=== PATIENT | male | born 1940 | race Caucasian/White ===

== ENCOUNTER → 2017-10-07 08:14 | Outpatient (CLI) | payer MEDICARE, OTHER | END | disposition home or self-care (01) | LOC: D.MRI 08:14 | DX: M54.5 Low back pain (principal) ==

== ENCOUNTER 2018-03-03 08:10 | Day surgery (SDC) | payer MEDICARE, OTHER ==
[2018-03-02 15:10] LABS: HEMATOCRIT 33.5 % (42.0-54.0); HEMOGLOBIN 11.3 g/dL (13.5-17.5); MCH 30.4 pg (26.0-34.0); MCHC 33.7 g/dL (31.0-37.0); MCV 90.1 fL (80.0-100.0); MEAN PLATELET VOLUME 9.4 fL (7.4-10.4); RBC 3.72 10x6/uL (4.20-6.10); RDW 13.1 % (11.5-14.5); WBC 6.4 10x3/uL (4.8-10.8)
[~2018-03-03] VITALS: Ht 170.2 cm; Wt 74.4 kg
[~2018-03-03 08:10] MED LIST: PROSCAR5 MG PO; UROXATRAL10 MG PO; VITAMIN D250000 UNIT PO
[2018-03-03 10:10] VITALS: BP 128/73; Ht 170.2 cm; Wt 74.4 kg
--- NOTE | 2018-03-03 11:55 | NUR ---
1140-RETURNRED FROM OR. DROWSY. RESP WITH EASE. AMIE PATENT. 1145-DR HERNANDEZ IN TO SEE PATIENT 1150-FULL LIQUIDS SERVED.
--- NOTE | 2018-03-03 12:11 | OP ---
PATIENT NAME: ABIMAEL ARCHIBALD MEDICAL RECORD: [id number] :40 LOCATION:[facility] ADMISSION DATE: SURGEON: FEDERICO HERNANDEZ MD DATE OF OPERATION: 03/03/2018 SURGEON: Federico Hernandez MD SEX WORKER OR ESCORT: MARYSOL by Thai Lyles CRNA. DIAGNOSIS: Obstructive BPH. Postvoid residual 102 mL. Digital rectal examination shows a 60 gram prostate. IPSS score was 21 and quality of life score was 6. FINDINGS: No penile urethral strictures. Obstructive bilateral lateral lobes. Unable to have a suture holding the right proximal lateral lobe. PROCEDURE: Cystoscopy, UroLift times 6 units attempted, but only 3 held. ESTIMATED BLOOD LOSS: Minimal. CLINICAL HISTORY: This is a 77-year-old male, who has obstructive BPH. He has been on finasteride and alfuzosin for over 1 year. He still has significant voiding symptoms. This includes nocturia times 6-8, which makes it difficult for him to sleep. He has hesitancy in getting started with a slow urinary flow and he feels that he is not fully emptying his bladder. His postvoid residual was measured at 102 mL. He was initially scheduled to have a TURP, but the surgery was delayed for other reasons. He comes now to have a UroLift procedure done. On rectal examination, his prostate is about 60 grams in size and benign. He is allergic to no medications. He was given [employer] customer relations advisor to the OR. DESCRIPTION OF PROCEDURE: The patient was given IV sedation. He was then placed into dorsal lithotomy position. The UroLift scope was used for cystoscopy. Findings are as outlined above. I attempted to put the proximal prosthetic urethral sutures first in the anterior lateral lobes of the prostate. I pulled the scope back distance of 2 cm from the bladder neck in order to have the device go in about 2 cm distal to the bladder neck. On the left side, this went without incidence. On the right side, we had difficulty with the instrumentation. The needle would passed through, but the clip on the opposite side would not catch. The lobe may be too thick for the depth of our instruments. We then placed the 2 distal anterior lateral lobe sutures at the level of the verumontanum. These were placed without incident and they are retracting the anterior urethral wall very nicely. We tried 2 more times in the right anterior proximal lateral lobe to try to get the device to have a suture that would hold, but always, we were unsuccessful. Further attempts were then abandoned. He does have some bleeding from our needle passages. I placed a 16-Colombian Olmos catheter into the bladder. This was put to bag drainage. I will see him next week for a voiding trial. TRANSINT:[id number] Voice Confirmation ID: [id number] DOCUMENT ID: [id number] OPERATIVE REPORT [id number] ABIMAEL ARCHIBALD, FEDERICO Mtz MD at 1211 CC: [id number] DICTATION DATE: 03/03/18 1141 END FINDER TWISTING DEPARTMENT: 03/03/18 1202 [facility] [address] [place] [address]
--- NOTE | 2018-03-03 14:01 | NUR ---
PATIENT RECIEVED WITH NO COMPLICATIONS. PAIN IS DENIED, EDUCATION PROVIDED FOR HOLLOWAY CATH. IV DC WITH CAATH TIP INTACT. DC INSTRUCTIONS PROVIDED WITH UNDERSTANDING VERBALIZED.
== END 2018-03-03 13:20 | disposition home or self-care (01) ==
LOC: D.OPS 08:10 → D.PAN 12:00 → D.OPS 12:00
PROVIDERS: Anesthesiology
DX: N40.1 Benign prostatic hyperplasia with lower urinary tract symptoms (principal); N13.8 Other obstructive and reflux uropathy; R39.11 Hesitancy of micturition; R39.14 Feeling of incomplete bladder emptying; R35.1 Nocturia; R39.12 Poor urinary stream; Z01.812 Encounter for preprocedural laboratory examination

== ENCOUNTER → 2018-03-09 18:51 | Outpatient (CLI) | payer MEDICARE, OTHER ==
[2018-03-03 10:10] VITALS: BMI 25.7
[~2018-03-09 18:51] MED LIST changes: +KRILL OIL 1,001 EAC1 PO; +MULTI-DAY VITAM1 TAB PO; +OS-CAL500 MG PO
== END | disposition home or self-care (01) ==
LOC: D.LABREF 18:51
DX: R31.9 Hematuria, unspecified (principal); D72.829 Elevated white blood cell count, unspecified

== ENCOUNTER 2018-03-29 05:35 | Day surgery (SDC) | payer MEDICARE, OTHER ==
[~2018-03-29] VITALS: Ht 177.8 cm; Wt 71.7 kg
[2018-03-29 10:10] LABS: HEMATOCRIT 35.1 % (42.0-54.0); HEMOGLOBIN 11.9 g/dL (13.5-17.5); MCH 30.3 pg (26.0-34.0); MCHC 33.9 g/dL (31.0-37.0); MCV 89.3 fL (80.0-100.0); MEAN PLATELET VOLUME 9.7 fL (7.4-10.4); RBC 3.93 10x6/uL (4.20-6.10); RDW 13.3 % (11.5-14.5); WBC 5.5 10x3/uL (4.8-10.8)
[2018-03-29 10:13] LABS: ANION GAP 11.2 mmol/L (8-16); CALCIUM 8.9 mg/dL (8.5-10.1); CARBON DIOXIDE 27.7 mmol/L (21.0-32.0); CREATININE - SERUM 1.2 mg/dL (0.6-1.3); POTASSIUM - SERUM 3.9 mmol/L (3.5-5.1)
[2018-03-29 10:53] VITALS: BP 106/65; Ht 177.8 cm; Wt 71.7 kg
--- NOTE | 2018-03-29 15:54 | OP ---
PATIENT NAME: ABIMAEL ARCHIBALD MEDICAL RECORD: [id number] :40 LOCATION:D.[facility] ADMISSION DATE: SURGEON: ALDO HERNANDEZ MD DATE OF OPERATION: 03/29/2018 SURGEON: Aldo Hernandez MD ANESTHESIA: TIVA by Mingo Davis CRNA. PROCEDURE: Cystoscopy, UroLift times 4 units attempted, 2 held, left side unit placed near the bladder neck, right side unit placed in mid urethra. 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 SPECIMENS: None. DIAGNOSIS: Obstructive benign prostatic hypertrophy. ESTIMATED BLOOD LOSS: Minimal. CLINICAL HISTORY: This is a 77-year-old male, who has obstructive BPH. He had a UroLift procedure performed on 03/03/2018 for obstructive BPH. He had 6 units attempted, but only 3 held. Three units were used trying to get the right lateral lobe near the bladder neck in position, but these sutures kept pulling out or hitting bone. At the present time, he has 3 units. Two are on the left side, one at the bladder neck and one near the verumontanum, and there is one on the right side near the verumontanum. He continues to have the same obstructive voiding symptoms as prior to surgery. His IPSS score when I saw him in followup was 22. Preoperatively was 21. His quality of life score was unchanged at 6. He has stopped taking his finasteride and alfuzosin that he had been on preoperatively. He did wish to have a repeat trial of the UroLift. If this was unsuccessful then the next step would be a TURP to try to relieve his voiding obstruction. He is not allergic to any medications. He was given Ancef clinical rehab liaison to the OR. DESCRIPTION OF PROCEDURE: The patient was given IV sedation. He was then placed into dorsal lithotomy position. The UroLift scope was placed. The anterior urethral channel is still obstructed. The lateral lobes are still meeting in the midline. I placed 1 UroLift device in the midpoint on the left lateral lobe near the anterior portion of the urethral channel. This held and the left side is now well retracted. On the right side, after using numerous attempts to get the suture to hold in the right bladder neck region, I finally got 1 to hold and this left us with 2 units on the right side and 3 units on the left side. He has much better urethral channel now. I decided to leave it at that and we will see how his voiding symptoms are. There is some bleeding from my multiple needle passages. Therefore, I will place a Olmos catheter and the catheter will be removed in a few days' time for a voiding trial. TRANSINT:[id number] Voice Confirmation ID: [id number] DOCUMENT ID: [id number] OPERATIVE REPORT [id number] ABIMAEL ARCHIBALD, ALDO Mtz MD at 1554 CC: [id number] DICTATION DATE: 03/29/18 1331 RIG SITE ENGINEER: 03/29/18 1508 [facility] [address] [place] [id number]
== END 2018-03-29 14:55 | disposition home or self-care (01) ==
LOC: D.OPS 05:35 → D.PAN 13:00 → D.OPS 13:00
PROVIDERS: Anesthesiology
DX: N40.1 Benign prostatic hyperplasia with lower urinary tract symptoms (principal); N13.8 Other obstructive and reflux uropathy; Z01.812 Encounter for preprocedural laboratory examination

== ENCOUNTER 2018-05-11 21:19 | Day surgery (SDC) | payer MEDICARE, OTHER ==
[2018-05-10 08:17] LABS: HEMATOCRIT 36.6 % (42.0-54.0); HEMOGLOBIN 12.3 g/dL (13.5-17.5); MCHC 33.6 g/dL (31.0-37.0); MCV 89.3 fL (80.0-100.0); MEAN PLATELET VOLUME 10.2 fL (7.4-10.4); RBC 4.1 10x6/uL (4.20-6.10); RDW 14.2 % (11.5-14.5); WBC 5.1 10x3/uL (4.8-10.8)
[~2018-05-11] VITALS: Ht 177.8 cm; Wt 71.7 kg
[2018-05-11 12:24] VITALS: BP 128/71; Ht 177.8 cm; Wt 71.7 kg
--- NOTE | 2018-05-11 19:52 | NUR ---
193 BLADDER SCAN DONE TOLERATED WELL 103ML OF URINE. IVF BOLUS 500ML GIVEN AND PT DRINKING FLUIDS WELL. ATTEMPTED UP TO BATHROOM BUT UNABLE TO URINATE. BLADDER SOFT TO PALPATE,ABDOMINAL BINDER ON AND PT STATED IT HELPED HIS PAIN.
--- NOTE | 2018-05-11 20:34 | NUR ---
PT IN BATHROOM ATTEMPTED TO URINATE BUT UNABLE. BLADDER SCAN AGAIN AND 175ML URINE NOTED. DR ROBERSON CYCLE MANAGER AND CALLED TO NOTIFY BLADDER SOFT AND PT NOT IN ANY DISCOMFORT. IVF GIVEN AND PO FLUIDS. PAIN TO ABDOMEN CONTROLLED.
--- NOTE | 2018-05-11 21:11 | NUR ---
PT ASSSITED WITH GETTING DRESSED AND MEDICATED PRIOR TO GOING HOME. INSTRUCTED TO GO TO THE ER IF UNABLE TO URINATE. IV REMOVED AND INSTRUCTIONS GIVEN.
--- NOTE | 2018-05-11 21:14 | NUR ---
PT WAS GIVEN THE OPTION TO STAY IN OBSERVATION UNTIL HE URINATED OR GO HOME. PT LIVES VERY CLOSE TO HOSPITAL AND DECIDED TO GO HOME
[~2018-05-11 21:19] MED LIST changes: +FLOMAX0.4 MG PO; +FUROSEMIDE20 MG PO; +HYDROCODON-ACE1 EAC7 PO; +PROBIOTIC BLEN1 EACH PO; +TUMERIC PO; +[UNRECOGNIZED DRUG - OTHER] PO
== END 2018-05-11 21:21 | disposition home or self-care (01) ==
LOC: D.OPS 21:19
PROVIDERS: Anesthesiology; ATTEND Surgery
DX: K40.20 Bilateral inguinal hernia, without obstruction or gangrene, not specified as recurrent (principal); Z01.812 Encounter for preprocedural laboratory examination

== ENCOUNTER → 2019-02-24 16:08 | Outpatient (CLI) | payer MEDICARE, OTHER ==
[2018-05-11 12:24] VITALS: BMI 22.7
== END | disposition home or self-care (01) ==
LOC: D.LABREF 16:08
PROVIDERS: ATTEND Urology
DX: R31.9 Hematuria, unspecified (principal)